=== PATIENT | female | born 1955 | race African-American/Black ===

== ENCOUNTER → 2016-09-13 | Outpatient (CLI) | payer BC ==
[2014-08-15 18:53] VITALS: BP 134/78
--- NOTE | 2016-09-13 16:35 | KCIC ---
Bilateral digital screening mammograms with CAD: HISTORY Routine screening. COMPARISON Comparison is made to previous studies dated 08/10/2014 and 07/13/2013. FINDINGS Breast density category B. The skin and nipples show no abnormalities. No abnormal lymph nodes are seen in the axilla. The breast parenchyma shows scattered fibroglandular density. There continues to be a small nodule consistent with an intramammary lymph node at the 10 o'clock C position of the right breast which is unchanged. In the left CC view anterior and medial to the nipple line, there is a small parenchymal density which appears to be new since previous exam and measures of approximately 6.8 millimeters in size. Recommend further evaluation with additional views in CC and true lateral projections and ultrasound evaluation. There are no other dominant masses, suspicious calcifications or architectural distortions. IMPRESSION New 6.8 millimeter nodule anterior medially in the left breast seen only on CC view. Recommend further evaluation with additional views in CC and true lateral projections and with ultrasound. This study was interpreted with the benefit of Computerized Aided Detection (CAD). Mammography is not 100% sensitive in detecting breast cancer. Therefore, a self breast exam and a clinical breast exam are very important. A negative mammogram does not negate a clinically suspicious finding and should not result in a delay in biopsying a clinically suspicious abnormality. BI-RADS category 0: Incomplete. Additional imaging is recommended. This patient's information has been entered into a reminder system for the patient to be notified with the results of this examination and a target date for her next mammograms. Electronically signed by: Josiane Magdaleno MD (Sep 13, 2016 16:33:46)
== END | disposition home or self-care (01) ==
LOC: KCIC MAMMO 15:27
PROVIDERS: ATTEND Family Medicine
DX: Z12.31 Encounter for screening mammogram for malignant neoplasm of breast (principal)
CPT/HCPCS: 77052; G0202; 77067

== ENCOUNTER → 2017-04-02 | Outpatient (CLI) | payer BC ==
[2014-08-15 18:53] VITALS: BP 134/78
--- NOTE | 2017-04-02 10:18 | RAD ---
DATE: 04/02/2017 EXAM: DIGITAL DIAGNOSTIC LT HISTORY: 6 month follow-up of questionable breast density COMPARISON: 09/13/2016, 08/10/2014, 07/21/2014 The breast parenchyma shows scattered fibroglandular densities. Breast parenchyma level B. FINDINGS: CC and MLO views of the left breast as well as a spot compression cc view of the medial aspect of the left breast were performed. The fibroglandular pattern is unchanged. No breast mass or enlarging breast densities are seen. No suspicious microcalcifications are evident. IMPRESSION: Stable left mammograms without evidence of malignancy. Follow-up bilateral mammography in 6 months is suggested. BI-RADS CATEGORY: 3 PROBABLY BENIGN FINDING(S)-SHORT INTERVAL FOLLOW-UP SUGGESTED RECOMMENDED FOLLOW-UP: 6M 6 MONTH FOLLOW-UP PQRS compliance statement: Patient information was entered into a reminder system with a target due date for the next mammogram. Mammography is a sensitive method for finding small breast cancers, but it does not detect them all and is not a substitute for careful clinical examination. A negative mammogram does not negate a clinically suspicious finding and should not result in delay in biopsying a clinically suspicious abnormality. "Our facility is accredited by the [employer] Mammography Program."
== END | disposition home or self-care (01) ==
LOC: KCIC MAMMO 09:12
PROVIDERS: ATTEND Family Medicine
DX: R92.8 Other abnormal and inconclusive findings on diagnostic imaging of breast (principal)
CPT/HCPCS: 76641; G0206; 77065

== ENCOUNTER → 2017-09-25 | Outpatient (CLI) | payer BC | END | disposition home or self-care (01) | LOC: KCIC MAMMO 08:58 | DX: N64.89 Other specified disorders of breast (principal) | CPT/HCPCS: 77066; G0279 ==

== ENCOUNTER → 2017-09-25 | Outpatient (CLI) | payer BC | END | disposition home or self-care (01) | LOC: US 14:25 | DX: N64.89 Other specified disorders of breast (principal) | CPT/HCPCS: 76641 ==

== ENCOUNTER 2018-01-09 02:36 | Emergency (ER) | payer BC ==
[2018-01-09 03:20] LABS: ADD MAN DIFF? NO
[2018-01-09] MEDS: LIDO:MAALOX 1:1 20 ML SINGLE DOSE. SWSW (03:23)
[2018-01-09 03:24] LABS: BASO # 0.1 x10^3/uL (0.0-0.2); BASO % 1 % (0-3); EOS # 0.2 x10^3/uL (0.0-0.7); EOS % 1 % (0-3); HEMATOCRIT 37.8 % (36.0-47.0); HEMOGLOBIN 12.3 g/dL (12.0-15.5); LYMPH # 4.5 x10^3/uL (1.0-4.8); LYMPH % 33 % (24-48); MEAN CORPUSCULAR HEMOGLOBIN 28 pg (25-35); MEAN CORPUSCULAR HGB CONC 33 g/dL (31-37); MEAN CORPUSCULAR VOLUME 85 fL (79-100); MONO # 0.7 x10^3/uL (0.0-1.1); MONO % 5 % (0-9); NEUT # 8.2 x10^3uL (1.8-7.7); NEUT % 60 % (31-73); PLATELET COUNT 318 x10^3/uL (140-400); RED BLOOD COUNT 4.46 x10^6/uL (3.50-5.40); RED CELL DISTRIBUTION WIDTH 15.7 % (11.5-14.5); WHITE BLOOD COUNT 13.8 x10^3/uL (4.0-11.0)
[2018-01-09 03:33] LABS: ANION GAP 11 (6-14); BLOOD UREA NITROGEN 17 mg/dL (7-20); BUN/CREATININE RATIO 19 (6-20); CALCIUM 9.1 mg/dL (8.5-10.1); CARBON DIOXIDE 26 mmol/L (21-32); CHLORIDE 104 mmol/L (98-107); CREATININE 0.9 mg/dL (0.6-1.0); GFR 76.3; GLUCOSE 228 mg/dL (70-99); POTASSIUM 4.2 mmol/L (3.5-5.1); SODIUM 141 mmol/L (136-145)
[2018-01-09 03:34] LABS: BILIRUBIN,URINE NEGATIVE (NEG); CLARITY,URINE CLEAR; COLOR,URINE YELLOW; GLUCOSE,URINE >=1000 mg/dL (NEG); NITRITE,URINE NEGATIVE (NEG); PH,URINE 6.5; PROTEIN,URINE NEGATIVE (NEG-TRACE); UROBILINOGEN,URINE 0.2 mg/dL (0.2 mg/dL)
[2018-01-09 03:35] LABS: BACTERIA,URINE 0 /HPF (0-FEW); RBC,URINE OCC /HPF (0-2); SQUAMOUS EPITHELIAL CELL,UR FEW /LPF
[2018-01-09 03:39] LABS: ALBUMIN 3.3 g/dL (3.4-5.0); ALBUMIN/GLOBULIN RATIO 0.8 (1.0-1.7); ALK PHOS 151 U/L (46-116); ALT (SGPT) 24 U/L (14-59); AST (SGOT) 16 U/L (15-37); LIPASE 218 U/L (73-393); TOTAL BILIRUBIN 0.2 mg/dL (0.2-1.0); TOTAL PROTEIN 7.3 g/dL (6.4-8.2)
[2018-01-09 03:41] LABS: TROPONINI < 0.017 ng/mL (0.000-0.055)
== END 2018-01-09 04:04 | disposition home or self-care (01) ==
LOC: ER 02:36
DX: K21.9 Gastro-esophageal reflux disease without esophagitis (principal); E11.9 Type 2 diabetes mellitus without complications; E78.00 Pure hypercholesterolemia, unspecified; I10 Essential (primary) hypertension; Z88.0 Allergy status to penicillin; Z90.49 Acquired absence of other specified parts of digestive tract; Z90.710 Acquired absence of both cervix and uterus
CPT/HCPCS: 36415; 80053; 81001; 83690; 84484; 85025; 93005; 99285-25

== ENCOUNTER → 2018-04-03 | Outpatient (CLI) | payer BC | END | disposition home or self-care (01) | LOC: KCIC MAMMO 08:50 | DX: R92.8 Other abnormal and inconclusive findings on diagnostic imaging of breast (principal); I10 Essential (primary) hypertension; E11.9 Type 2 diabetes mellitus without complications; E78.00 Pure hypercholesterolemia, unspecified; K21.9 Gastro-esophageal reflux disease without esophagitis; Z90.49 Acquired absence of other specified parts of digestive tract | CPT/HCPCS: 76641; 77065; G0279 ==

== ENCOUNTER → 2018-10-24 | Outpatient (CLI) | payer BC ==
[2018-01-09 03:40] VITALS: BP 151/69
[~2018-10-24] MED LIST: RANI300T3 PO
--- NOTE | 2018-10-24 13:09 | KCIC ---
MR of the right wrist without contrast HISTORY: Right wrist pain. Swelling at the radial aspect. Symptoms for 6 months. TECHNIQUE: Routine multiplanar sequences are obtained. FINDINGS: Slight ulnar minus variance. Triangular fibrocartilage appears intact. The extensor carpi ulnaris tendon demonstrates mild tendinosis. Other extensor compartments are intact. The flexor tendons are intact. Median nerve unremarkable. Scapholunate ligament and lunotriquetral ligament are intact. Alignment of the carpal bones is intact. There is a small lobulated fluid collection anterior to the radial styloid and radioscaphoid joint, likely a ganglion, altogether measuring about 1.5 cm transverse diameter. There is no evidence of large joint effusion. No aggressive bone destruction or acute fracture. Scattered small carpal cysts are identified. IMPRESSION: 1. Mild extensor carpi ulnaris tendinosis. 2. Small cyst or ganglion anterior to the radial styloid. Electronically signed by: Jose Alfredo Dinh MD (10/24/2018 1:06 PM) [facility]
== END | disposition home or self-care (01) ==
LOC: KCIC MRI 09:42
PROVIDERS: ATTEND Orthopaedic Surgery
DX: M77.8 Other enthesopathies, not elsewhere classified (principal)
CPT/HCPCS: 73221

== ENCOUNTER 2018-11-09 10:14 | Emergency (ER) | payer BC ==
[~2018-11-09] VITALS: Ht 152.4 cm; Wt 87.5 kg
[2018-11-09] MEDS ORDERED: ONDANSETRON PF 4 MG/2 ML VIAL. IV ONE (11:00)
[2018-11-09] MEDS ORDERED: MECLIZINE HCL 12.5 MG TABLET. PO ONE (11:00)
[2018-11-09 11:09] LABS: BASO # 0.1 x10^3/uL (0.0-0.2); BASO % 1 % (0-3); EOS # 0.1 x10^3/uL (0.0-0.7); EOS % 1 % (0-3); HEMATOCRIT 37.1 % (36.0-47.0); HEMOGLOBIN 11.9 g/dL (12.0-15.5); LYMPH # 3.3 x10^3/uL (1.0-4.8); LYMPH % 34 % (24-48); MEAN CORPUSCULAR HEMOGLOBIN 27 pg (25-35); MEAN CORPUSCULAR HGB CONC 32 g/dL (31-37); MEAN CORPUSCULAR VOLUME 85 fL (79-100); MONO # 0.5 x10^3/uL (0.0-1.1); MONO % 5 % (0-9); NEUT # 5.9 x10^3uL (1.8-7.7); NEUT % 59 % (31-73); PLATELET COUNT 290 x10^3/uL (140-400); RED BLOOD COUNT 4.34 x10^6/uL (3.50-5.40); RED CELL DISTRIBUTION WIDTH 16.3 % (11.5-14.5); WHITE BLOOD COUNT 9.9 x10^3/uL (4.0-11.0)
--- NOTE | 2018-11-09 11:13 | PHYS DOC ---
Past Medical History Past Medical History: Diabetes-Type II, GERD, High Cholesterol, Hypertension Past Surgical History: Appendectomy, Hysterectomy Alcohol Use: None Drug Use: None Adult General Chief Complaint Chief Complaint: DIZZY/LIGHT HEADED HPI HPI Patient is a 63 year old female who presents with dizziness for the past 2 days. She describes it as a spinning sensation with nausea. Worse with changing head position and eyes open, improved with staying still and eyes closed. Patient denies any chest pain or palpitations. She denies any vomiting. Denies any headache. She reports ringing in bilateral ears but this is chronic without any acute changes. No fevers.[] Review of Systems Review of Systems Constitutional: Denies fever or chills [] Eyes: Denies change in visual acuity, redness, or eye pain [] HENT: Denies nasal congestion or sore throat [] Respiratory: Denies cough or shortness of breath [] Cardiovascular: No chest pain or palpitations[] GI: Denies abdominal pain, nausea, vomiting, bloody stools or diarrhea [] : Denies dysuria or hematuria [] Musculoskeletal: Denies back pain or joint pain [] Integument: Denies rash or skin lesions [] Neurologic: Denies headache, focal weakness or sensory changes [] Endocrine: Denies polyuria or polydipsia [] All other systems were reviewed and found to be within normal limits, except as documented in this note. Current Medications Current Medications Current Medications Medications (Trade) Dose Ordered Sig/Yuri Start Time Stop Time Status Last Admin Dose Admin Lorazepam (Ativan) 1 mg 1X ONCE 11/09/18 12:30 11/09/18 12:31 DC 11/09/18 12:36 1 MG Meclizine HCl (Antivert) 25 mg 1X ONCE 11/09/18 11:00 11/09/18 11:01 DC 11/09/18 11:02 25 MG Ondansetron HCl (Zofran) 4 mg 1X ONCE 11/09/18 11:00 11/09/18 11:01 DC 11/09/18 11:00 4 MG Allergies Allergies Allergies Coded Allergies Type Severity Reaction Last Updated Verified penicillin V Allergy Intermediate hives 08/15/14 Yes Physical Exam Physical Exam Constitutional: Well developed, well nourished, no acute distress, non-toxic appearance. [] HENT: Normocephalic, atraumatic, bilateral external ears normal, oropharynx moist, no oral exudates, nose normal. [] Eyes: PERRLA, EOMI, conjunctiva normal, no discharge. [] Neck: Normal range of motion, no tenderness, supple, no stridor. [] Cardiovascular:Heart rate regular rhythm, no murmur [] Lungs & Thorax: Bilateral breath sounds clear to auscultation [] Abdomen: Bowel sounds normal, soft, no tenderness, no masses, no pulsatile masses. [] Skin: Warm, dry, no erythema, no rash. [] Back: No tenderness, no CVA tenderness. [] Extremities: No tenderness, no cyanosis, no clubbing, ROM intact, no edema. [] Neurologic: Alert and oriented X 3, normal motor function, normal sensory function, no focal deficits noted. Nystagmus is present with fast beat to the left. This extinguishes within 60 seconds of changing position.[] Psychologic: Affect normal, judgement normal, mood normal. [] Current Patient Data Vital Signs Vital Signs Date Time Temp Pulse Resp B/P (MAP) Pulse Ox O2 Delivery O2 Flow Rate FiO2 11/09/18 12:00 66 16 99 11/09/18 10:31 98.8 173/75 (107) Room Air 98.8 Lab Values Laboratory Tests Test 11/09/18 10:40 11/09/18 11:54 White Blood Count 9.9 x10^3/uL (4.0-11.0) Red Blood Count 4.34 x10^6/uL (3.50-5.40) Hemoglobin 11.9 g/dL (12.0-15.5) L Hematocrit 37.1 % (36.0-47.0) Mean Corpuscular Volume 85 fL (79-100) Mean Corpuscular Hemoglobin 27 pg (25-35) Mean Corpuscular Hemoglobin Concent 32 g/dL (31-37) Red Cell Distribution Width 16.3 % (11.5-14.5) H Platelet Count 290 x10^3/uL (140-400) Neutrophils (%) (Auto) 59 % (31-73) Lymphocytes (%) (Auto) 34 % (24-48) Monocytes (%) (Auto) 5 % (0-9) Eosinophils (%) (Auto) 1 % (0-3) Basophils (%) (Auto) 1 % (0-3) Neutrophils # (Auto) 5.9 x10^3uL (1.8-7.7) Lymphocytes # (Auto) 3.3 x10^3/uL (1.0-4.8) Monocytes # (Auto) 0.5 x10^3/uL (0.0-1.1) Eosinophils # (Auto) 0.1 x10^3/uL (0.0-0.7) Basophils # (Auto) 0.1 x10^3/uL (0.0-0.2) Prothrombin Time 11.7 SEC (11.7-14.0) Prothrombin Time INR 0.9 (0.8-1.1) Sodium Level 142 mmol/L (136-145) Potassium Level 4.0 mmol/L (3.5-5.1) Chloride Level 107 mmol/L (98-107) Carbon Dioxide Level 28 mmol/L (21-32) Anion Gap 7 (6-14) Blood Urea Nitrogen 12 mg/dL (7-20) Creatinine 0.8 mg/dL (0.6-1.0) Estimated GFR (Cockcroft-Gault) 87.1 BUN/Creatinine Ratio 15 (6-20) Glucose Level 295 mg/dL (70-99) H Calcium Level 8.7 mg/dL (8.5-10.1) Magnesium Level 2.3 mg/dL (1.8-2.4) Total Bilirubin 0.2 mg/dL (0.2-1.0) Aspartate Amino Transferase (AST) 12 U/L (15-37) L Alanine Aminotransferase (ALT) 17 U/L (14-59) Alkaline Phosphatase 148 U/L (46-116) H Troponin I Quantitative < 0.017 ng/mL (0.000-0.055) GY-Mys-S-Type Natriuretic Peptide 53 pg/mL (0-124) Total Protein 7.2 g/dL (6.4-8.2) Albumin 3.1 g/dL (3.4-5.0) L Albumin/Globulin Ratio 0.8 (1.0-1.7) L Urine Collection Type Void Urine Color Yellow Urine Clarity Clear Urine pH 6.0 Urine Specific [employer] >=1.030 Urine Protein Negative mg/dL (NEG-TRACE) Urine Glucose (UA) >=1000 mg/dL (NEG) Urine Ketones (Stick) Negative mg/dL (NEG) Urine Blood Negative (NEG) Urine Nitrite Negative (NEG) Urine Bilirubin Negative (NEG) Urine Urobilinogen Dipstick 1.0 mg/dL (0.2 mg/dL) Urine Leukocyte Esterase Negative (NEG) Urine RBC 0 /HPF (0-2) Urine WBC 1-4 /HPF (0-4) Urine Squamous Epithelial Cells Mod /LPF Urine Bacteria Few /HPF (0-FEW) Urine Yeast Present /HPF Laboratory Tests 11/09/18 10:40 Laboratory Tests 11/09/18 10:40 EKG EKG EKG shows a sinus rhythm at 79 bpm, left axis, QTC of 3 and her 95 ms, no ST elevations, nonspecific ST-T wave changes diffusely, interpreted by me at 1038[] Radiology/Procedures Radiology/Procedures CT HEAD INDICATION: DIZZINESS X 2 DAYS COMPARISON: None Available. Exposure: One or more of the following individualized dose reduction techniques were utilized for this examination: 1. Automated exposure control 2. Adjustment of the mA and/or kV according to patient size 3. Use of iterative reconstruction technique TECHNIQUE: 5 mm contiguous axial images were obtained from the skull base to the vertex FINDINGS: No abnormal attenuation within the brain parenchyma. No evidence of acute intracranial hemorrhage. No extra-axial fluid collections. No mass effect or midline shift. Ventricular size is appropriate. Basal cisterns are patent. No fractures identified.Sullivan-white differentiation is preserved.Globes and orbits are within normal limits. Paranasal sinuses and mastoid air cells are clear. IMPRESSION: No acute intracranial findings. EXAM: CHEST 1 VIEW History: Dizziness COMPARISON: None available. TECHNIQUE: Single portable radiograph of the chest FINDINGS: The cardiac silhouette is unremarkable. The lungs are clear bilaterally. The costophrenic sulci are clear and well demarcated. IMPRESSION: No radiographic evidence of an acute cardiopulmonary process.[] Course & Med Decision Making Course & Med Decision Making Pertinent Labs and Imaging studies reviewed. (See chart for details) ED course: Patient arrived, was placed in bed, and tolerated exam well. [facility]. She received mild improvement from antiemetics and Antivert. Given that the hospital is out of IV diazepam, she was given IV Ativan as a second line agent to help with the vertigo symptoms. She reports feeling much better after the Ativan. Medical decision making: This appears to be a case of peripheral vertigo. No evidence of intracranial mass or bleed, no evidence of this being cardiac etiology. No evidence of intractable vertigo symptoms.[] Dragon Disclaimer Dragon Disclaimer This electronic medical record was generated, in whole or in part, using a voice recognition dictation system. Departure Departure Impression: Primary Impression: Peripheral vertigo Disposition: HOME, SELF-CARE Condition: IMPROVED Referrals: VAN CALIXTO MD (PCP) Follow-up in 2 days Patient Instructions: Benign Positional Vertigo Additional Instructions: Follow-up with your regular doctor in 2 days. Try the otolith recannulation maneuvers as attached. Return to the ER if unable to tolerate liquids, worsening symptoms, or any other concerns. Scripts Diazepam (VALIUM) 5 Mg Tablet 5 MG PO QIDPRN PRN for VERTIGO, #20 TAB Prov: JORJE ANAYA DO 11/09/18 Ondansetron Hcl (ZOFRAN) 4 Mg Tablet 4 MG PO PRN TID PRN for NAUSEA/VOMITING, #20 nausea/vomiting Prov: JORJE ANAYA DO 11/09/18 Meclizine Hcl (MECLIZINE HCL) 25 Mg Tablet 25 MG PO PRN TID PRN for VERTIGO, #30 dizziness Prov: JORJE ANAYA DO 11/09/18 Problem Qualifiers Primary Impression: Peripheral vertigo Laterality: unspecified laterality Qualified Codes: H81.399 - Other peripheral vertigo, unspecified ear JORJE ANAYA DO Nov 09, 2018 11:13
[2018-11-09 11:15] LABS: PROTHROMBIN TIME PATIENT 11.7 SEC (11.7-14.0)
[2018-11-09 11:19] LABS: CALCIUM 8.7 mg/dL (8.5-10.1); CREATININE 0.8 mg/dL (0.6-1.0); GFR 87.1
[2018-11-09 11:25] LABS: ALBUMIN 3.1 g/dL (3.4-5.0); ALBUMIN/GLOBULIN RATIO 0.8 (1.0-1.7); MAGNESIUM 2.3 mg/dL (1.8-2.4); TOTAL BILIRUBIN 0.2 mg/dL (0.2-1.0); TOTAL PROTEIN 7.2 g/dL (6.4-8.2)
--- NOTE | 2018-11-09 11:50 | RAD ---
CT HEAD INDICATION: DIZZINESS X 2 DAYS COMPARISON: None Available. Exposure: One or more of the following individualized dose reduction techniques were utilized for this examination: 1. Automated exposure control 2. Adjustment of the mA and/or kV according to patient size 3. Use of iterative reconstruction technique TECHNIQUE: 5 mm contiguous axial images were obtained from the skull base to the vertex FINDINGS: No abnormal attenuation within the brain parenchyma. No evidence of acute intracranial hemorrhage. No extra-axial fluid collections. No mass effect or midline shift. Ventricular size is appropriate. Basal cisterns are patent. No fractures identified.Sullivan-white differentiation is preserved.Globes and orbits are within normal limits. Paranasal sinuses and mastoid air cells are clear. IMPRESSION: No acute intracranial findings. Electronically signed by: Jose Angel Swift MD (11/09/2018 11:47 AM) [facility]
--- NOTE | 2018-11-09 11:51 | RAD ---
EXAM: CHEST 1 VIEW History: Dizziness COMPARISON: None available. TECHNIQUE: Single portable radiograph of the chest FINDINGS: The cardiac silhouette is unremarkable. The lungs are clear bilaterally. The costophrenic sulci are clear and well demarcated. IMPRESSION: No radiographic evidence of an acute cardiopulmonary process. Electronically signed by: Jose Angel Swift MD (11/09/2018 11:48 AM) [facility]
[2018-11-09 12:00] VITALS: BP 161/70
[2018-11-09 12:08] LABS: BILIRUBIN,URINE NEGATIVE (NEG); CLARITY,URINE CLEAR; COLOR,URINE YELLOW; NITRITE,URINE NEGATIVE (NEG); PROTEIN,URINE NEGATIVE (NEG-TRACE)
[2018-11-09 12:25] LABS: BACTERIA,URINE FEW /HPF (0-FEW); SQUAMOUS EPITHELIAL CELL,UR MOD /LPF
[2018-11-09 12:26] LABS: RBC,URINE 0 /HPF (0-2); YEAST,URINE PRESENT /HPF
[2018-11-09] MEDS ORDERED: MECL25TA3 PO (12:53)
[2018-11-09] MEDS ORDERED: ONDA4TAB7 PO (12:53)
[2018-11-09] MEDS ORDERED: DIAZ5TAB PO (12:53)
--- NOTE | 2018-11-09 17:26 | EKG ---
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
== END 2018-11-09 13:00 | disposition home or self-care (01) ==
LOC: ER 10:14
DX: H81.399 Other peripheral vertigo, unspecified ear (principal); E11.9 Type 2 diabetes mellitus without complications; E78.00 Pure hypercholesterolemia, unspecified; I10 Essential (primary) hypertension; K21.9 Gastro-esophageal reflux disease without esophagitis; Z90.89 Acquired absence of other organs; Z90.710 Acquired absence of both cervix and uterus; Z88.0 Allergy status to penicillin
CPT/HCPCS: 36415; 70450; 71045; 80053; 81001; 83735; 83880; 84484; 85025; 85610; 93005; 96374; 96375; 99284; J2060; J2405; J8597

== ENCOUNTER → 2018-11-17 | Outpatient (CLI) | payer BC ==
[2018-11-09 12:00] VITALS: BP 161/70
[~2018-11-17] MED LIST changes: +DIAZ5TAB PO; +MECL25TA3 PO; +ONDA4TAB7 PO
--- NOTE | 2018-11-17 09:52 | RAD ---
MR#: [id number] Date of Study: 11/17/2018 Ordering Physician: EDWARD THOMAS, Referring Physician: EDWARD THOMAS, Tech: Sumanth Mahmood MBA, RDMS, RVT, RDCS, RTR APPROVED REPORT Patient Location: OUT-PATIENT Indications Uncontrolled HTN Renal Artery Doppler Right Renal Artery Left Renal Arter y Proximal 118.0/30.0 cm/secProximal 114.0/26.0 cm/sec Mid 131.0/29.0 cm/secMid 132.0/30.0 cm/sec Distal 111.0/26.0 cm/secDistal 107.0/27.0 cm/sec Renal/Aorta Ratio 0.96Renal/Aorta Ratio 0.97 Prox. Resistive Index 0.75Prox. Resistive Index 0.77 Mid Resistive Index 0.78Mid Resistive Index 0.78 Distal Resistive Index 0.77Distal Resistive Index 0.75 Rt. Segmental A. 45.0/12.0 cm/secLt. Segmental A. 55.0/17.0 cm/sec Renal Measurements RightLeft Kidney Xstkir80.5 cm cmKidney Igxoam11.8 cm cm Right Additional FindingsLeft Additional Findings Aortic Doppler VelocityWaveform Proximal Aorta 136.0 cm/sec Findings Grayscale images of the bilateral kidneys do not reveal any obvious pathology. Spectral waveforms and color Doppler of the proximal, mid and distal renal arteries bilaterally do no t reveal any velocity acceleration. Normal resistive indices and renal to aortic ratios are noted. Critical Notification Critical Value: No <Conclusion> No significant renal artery stenosis. Signed by : Edwin Parsons, Electronically Approved : 11/17/2018 09:51:52
== END | disposition home or self-care (01) ==
LOC: US 07:01
PROVIDERS: ATTEND Internal Medicine Cardiovascular Disease
DX: I10 Essential (primary) hypertension (principal)
CPT/HCPCS: 76770

== ENCOUNTER → 2018-11-28 | Outpatient (CLI) | payer BC ==
[2018-11-09 12:00] VITALS: BP 161/70
--- NOTE | 2018-11-28 15:39 | CARD ---
MR#: [id number] Date of Study: 11/28/2018 Ordering Physician: EDWARD DEGROOT, Referring Physician: EDWARD DEGROOT, Tech: Liz Hagen APPROVED REPORT EXAM: Two-dimensional and M-mode echocardiogram with Doppler and color Doppler. Other Information Quality : GoodHR: 82bpm INDICATION Hypertension/HCVD RISK FACTORS Hypertension Hyperlipidemia Diabetes 2D DIMENSIONS RVDd3.6 (2.9-3.5cm)Left Atrium(2D)3.6 (1.6-4.0cm) IVSd1.0 (0.7-1.1cm)Aortic Root(2D)2.5 (2.0-3.7cm) LVDd5.0 (3.9-5.9cm)LVOT Diameter2.0 (1.8-2.4cm) PWd0.9 (0.7-1.1cm)LVDs3.5 (2.5-4.0cm) FS (%) 29.7 %SV68.3 ml LVEF(%)56.6 (>50%) Aortic Valve AoV Peak Raymon.114.1cm/sAoV VTI25.8cm AO Peak GR.5.2mmHgLVOT Peak Raymon.59.3cm/s LVOT VTI 13.72cmAO Mean GR.3mmHg JERMAINE (VMAX)1.47ym4ZOW (VTI)1.65cm2 Mitral Valve MV E Facxcfdo98.7cm/sMV DECEL HEGS469sl MV A Mmxjyxkm30.4cm/sMV LDS98dk E/A Ratio0.8MVA (PHT)3.64cm2 TDI E/Lateral E'7.2E/Medial E'6.0 Pulmonary Valve PV Peak Hogapbxn30.9cm/sPV Peak Grad.3mmHg Tricuspid Valve TR P. Kzcnrnpt599ax/sRAP NUMMNVGU6pfMh TR Peak Gr.61azFdQMYY01ziCt Pulmonary Vein S1 Oawwlsfn59.1cm/sD2 Fforzzur66.2cm/s PVa ivtqrobo78pdnw LEFT VENTRICLE The left ventricle is normal size. There is normal left ventricular wall thickness. The left ventricu lar systolic function is normal and the ejection fraction is within normal range. The Ejection Fracti on is 50-55%. There is normal LV segmental wall motion. Transmitral Doppler flow pattern is Grade I-a bnormal relaxation pattern. RIGHT VENTRICLE The right ventricle is normal size. There is normal right ventricular wall thickness. The right ventr icular systolic function is normal. ATRIA The left atrium size is normal. The right atrium size is normal. The interatrial septum bows toward l eft atrium consistent with elevated right atrial pressure. AORTIC VALVE The aortic valve is normal in structure and function. Doppler and Color Flow revealed no significant aortic regurgitation. There is no significant aortic valvular stenosis. MITRAL VALVE The mitral valve is normal in structure and function. There is no evidence of mitral valve prolapse. There is no mitral valve stenosis. Doppler and Color-flow revealed trace mitral regurgitation. TRICUSPID VALVE The tricuspid valve is normal in structure and function. Doppler and Color Flow revealed trace to mil d tricuspid regurgitation with an estimated PAP of 34 mmHg. There is no tricuspid valve stenosis. PULMONIC VALVE The pulmonary valve is normal in structure and function. Doppler and Color Flow revealed no pulmonic valvular regurgitation. There is no pulmonic valvular stenosis. GREAT VESSELS The aortic root is normal in size. The IVC is normal in size and collapses >50% with inspiration. PERICARDIAL EFFUSION There is no evidence of significant pericardial effusion. Critical Notification Critical Value: No <Conclusion> The left ventricle is normal size. The left ventricular systolic function is normal and the ejection fraction is within normal range. The Ejection Fraction is 50-55%. There is no significant aortic valvular stenosis. Doppler and Color Flow revealed no significant aortic regurgitation. Doppler and Color-flow revealed trace mitral regurgitation. Doppler and Color Flow revealed trace to mild tricuspid regurgitation with an estimated PAP of 34 mmH g. Signed by : Edward Degroot MD Electronically Approved : 11/28/2018 15:38:31
== END | disposition home or self-care (01) ==
LOC: ECHO 13:55
PROVIDERS: ATTEND Internal Medicine Cardiovascular Disease
DX: I10 Essential (primary) hypertension (principal); E78.5 Hyperlipidemia, unspecified; E11.9 Type 2 diabetes mellitus without complications; R00.8 Other abnormalities of heart beat
CPT/HCPCS: 93306

== ENCOUNTER → 2019-02-09 | Outpatient (CLI) | payer BC ==
--- NOTE | 2019-02-09 16:07 | KCIC ---
EXAM: Left calcaneus 2 views. HISTORY: Erika deformity. COMPARISON: None. FINDINGS: There are moderate plantar and posterior calcaneal spurs. Spur at the calcaneal tuberosity measures 9 mm. There is mild overlying soft tissue swelling. The Achilles tendon stripe is not clearly thickened by radiographs. The plantar spur measures 7 mm. No fractures are identified. The subtalar joint appears normally aligned. IMPRESSION: 1. Posterior and plantar calcaneal spurs as above. Electronically signed by: Tamar Lobo MD (02/09/2019 4:04 PM) [facility]
== END | disposition home or self-care (01) ==
LOC: KCIC 11:19
PROVIDERS: ATTEND Orthopaedic Surgery
DX: M77.32 Calcaneal spur, left foot (principal); M92.62 Juvenile osteochondrosis of tarsus, left ankle
CPT/HCPCS: 73650

== ENCOUNTER 2019-03-22 10:00 | Emergency (ER) | payer BC ==
[~2019-03-22] VITALS: Ht 152.4 cm; Wt 88.9 kg
[2019-03-22 10:14] VITALS: BP 140/63
[2019-03-22] MEDS ORDERED: MORPHINE SULFATE 4 MG/ML VIAL. IM ONE (10:15)
--- NOTE | 2019-03-22 11:14 | RAD ---
Examination: CT lumbar spine without contrast HISTORY: History of history of lifting weight, point tenderness upper lumbar spine COMPARISON: None available Technique: Axial CT images of the lumbar spine were performed with contrast. Coronal and sagittal reformats performed Exposure: One or more of the following individualized dose reduction techniques were utilized for this examination: 1. Automated exposure control 2. Adjustment of the mA and/or kV according to patient size 3. Use of iterative reconstruction technique FINDINGS: The lumbar vertebral body heights are maintained. No evidence of listhesis. L1-L2: Minimal disc bulge causing minimal anterior thecal sac impression. L2-3: Mild disc bulge identified causing mild anterior thecal sac impression. L3-L4: Diffuse disc bulge causing moderate spinal canal stenosis. Mild bilateral neural foraminal narrowing. L4-L5: Diffuse disc bulge causing moderate spinal canal stenosis. Mild bilateral neural foraminal narrowing. L5-S1: Diffuse disc bulge causing moderate spinal canal stenosis. Moderate bilateral neural foraminal narrowing. The caliber of the aorta grossly appears unremarkable. IMPRESSION: 1. No acute osseous findings. 2. Multilevel degenerative changes lumbar spine. Electronically signed by: Jose Angel Swift MD (03/22/2019 11:11 AM) [facility]
[2019-03-22] MEDS ORDERED: HYDR-3164 PO (11:31)
[2019-03-22] MEDS ORDERED: CYCL10TA2 PO (11:31)
[2019-03-22] MEDS ORDERED: METH4TAB2 PO (11:31)
--- NOTE | 2019-03-22 11:31 | PHYS DOC ---
Past Medical History Past Medical History: Diabetes-Type II, GERD, High Cholesterol, Hypertension Past Surgical History: Appendectomy, Hysterectomy Alcohol Use: None Drug Use: None Adult General Chief Complaint Chief Complaint: BACK PAIN OR INJURY HPI HPI Patient is a 63 year old female who presents with complaining of back pain. Patient states she lifted a mattress with his son 4 days ago and since then has had mid back pain as a constant sharp pain without radiation that getting worse with movement. Patient denies focal neuro deficit, nausea and vomiting, abdominal pain, chest pain and shortness of breath, bowel incontinence. Patient states she took Tylenol and apply ice on her back without improvement of her pain and rated her pain 10 over 10. Review of Systems Review of Systems Constitutional: Denies fever or chills [] Eyes: Denies change in visual acuity, redness, or eye pain [] HENT: Denies nasal congestion or sore throat [] Respiratory: Denies cough or shortness of breath [] Cardiovascular: No additional information not addressed in HPI [] GI: Denies abdominal pain, nausea, vomiting, bloody stools or diarrhea [] : Denies dysuria or hematuria [] Musculoskeletal: Reports back pain, denies joint pain [] Integument: Denies rash or skin lesions [] Neurologic: Denies headache, focal weakness or sensory changes [] Endocrine: Denies polyuria or polydipsia [] All other systems were reviewed and found to be within normal limits, except as documented in this note. Current Medications Current Medications Current Medications Medications (Trade) Dose Ordered Sig/Yuri Start Time Stop Time Status Last Admin Dose Admin Morphine Sulfate (Morphine Sulfate) 4 mg 1X ONCE 03/22/19 10:15 03/22/19 10:16 DC 03/22/19 10:26 4 MG Allergies Allergies Allergies Coded Allergies Type Severity Reaction Last Updated Verified penicillin V Allergy Intermediate hives 08/15/14 Yes Physical Exam Physical Exam Constitutional: Well developed, well nourished, moderate distress, non-toxic appearance. [] HENT: Normocephalic, atraumatic. Neck: Normal range of motion, no tenderness, supple, no stridor. [] Cardiovascular:Heart rate regular rhythm, no murmur [] Lungs & Thorax: Bilateral breath sounds clear to auscultation [] Back: Tenderness on midline lumbar spine painful range of motion, no CVA tenderness. [] Extremities: No tenderness, no cyanosis, no clubbing, ROM intact, no edema. [] Neurologic: Alert and oriented X 3, normal motor function, normal sensory function, no focal deficits noted. [] Psychologic: Affect anxious, judgement normal, mood normal. [] Current Patient Data Vital Signs Vital Signs Date Time Temp Pulse Resp B/P (MAP) Pulse Ox O2 Delivery O2 Flow Rate FiO2 03/22/19 10:26 16 99 Room Air 03/22/19 10:14 98.1 71 140/63 (88) 98.1 EKG EKG [] Radiology/Procedures Radiology/Procedures [facility] [address] [place], [place] [id number] IMAGING REPORT Signed PATIENT: JESSICA GODINEZ ACCOUNT: [id number] : 1955 LOCATION: ER AGE: 63 SEX: F EXAM STATUS: REG ER ORD. PHYSICIAN: DEANNE APARICIO MD REASON: lifted weigth, point of tenderness in upper lumbar spine PROCEDURE: CT LUMBAR SPINE WO CONTRAST Examination: CT lumbar spine without contrast HISTORY: History of history of lifting weight, point tenderness upper lumbar spine COMPARISON: None available Technique: Axial CT images of the lumbar spine were performed with contrast. Coronal and sagittal reformats performed Exposure: One or more of the following individualized dose reduction techniques were utilized for this examination: 1. Automated exposure control 2. Adjustment of the mA and/or kV according to patient size 3. Use of iterative reconstruction technique FINDINGS: The lumbar vertebral body heights are maintained. No evidence of listhesis. L1-L2: Minimal disc bulge causing minimal anterior thecal sac impression. L2-3: Mild disc bulge identified causing mild anterior thecal sac impression. L3-L4: Diffuse disc bulge causing moderate spinal canal stenosis. Mild bilateral neural foraminal narrowing. L4-L5: Diffuse disc bulge causing moderate spinal canal stenosis. Mild bilateral neural foraminal narrowing. L5-S1: Diffuse disc bulge causing moderate spinal canal stenosis. Moderate bilateral neural foraminal narrowing. The caliber of the aorta grossly appears unremarkable. IMPRESSION: 1. No acute osseous findings. 2. Multilevel degenerative changes lumbar spine. Electronically signed by: Jose Angel Swift MD (03/22/2019 11:11 AM) [facility] DICTATED and SIGNED BY: JOSE ANGEL SWIFT MD DATE: 03/22/19 1111 Course & Med Decision Making Course & Med Decision Making Pertinent Imaging studies reviewed. (See chart for details) Evaluation of patient in ER showed 63-year-old female patient with complaining of low back pain after lifting weights. Patient had midline tenderness and CT showed multiple bulging disc and spinal stenosis without acute finding. Patient treated with morphine IM and felt better. Patient was advised to follow up with her primary care physician and continue to apply ice on her back. Prescription for [place], Flexeril and Medrol Dosepak given. I've spoken with the patient and/or caregivers. I've explained the patient's condition, diagnosis and treatment plan based on information available to me at this time. I've answered the patient's and/or caregivers questions and addressed any concerns. The patient and/or caregivers have a good understanding the patient's diagnosis, condition and treatment plan as can be expected at this point. Vital signs have been stabilized. The patient's condition is stable for discharge from the emergency department. The patient will pursue further outpatient evaluation with her primary care provider or other designated consulting physician as outlined in the discharge instructions. Patient and/or caregivers are agreeable to this plan of care and follow-up instructions have been explained in detail. The patient and/or caregivers have received these instructions in written format and expressed un derstanding of these discharge instructions. The patient and her caregivers are aware that if any significant change in condition or worsening of symptoms should prompt him to immediately return to this of the closest emergency department. If an emergent department is not readily available I would encourage him to call 911. Mera Disclaimer Dragon Disclaimer This electronic medical record was generated, in whole or in part, using a voice recognition dictation system. Departure Departure Impression: Primary Impression: Degenerative joint disease (DJD) of lumbar spine Additional Impressions: Acute lumbosacral myofascial strain Spinal stenosis of lumbar region Bulging disc Disposition: HOME, SELF-CARE (at 1127) Condition: IMPROVED Referrals: VAN CALIXTO MD (PCP) Patient Instructions: Lumbosacral Strain, Spinal Stenosis Additional Instructions: Drink plenty of liquids Follow-up with your primary care physician in 3-5 days Return to ER if not getting better Apply ice on the affected area Scripts Hydrocodone/Apap 5-325 (NORCO 5-325 TABLET) 1 Each Tablet 1 TAB PO PRN Q6HRS PRN for PAIN, #10 TAB 0 Refills Prov: DEANNE APARICIO MD 03/22/19 Methylprednisolone (MEDROL) 4 Mg Tab.ds.pk 1 PKG PO UD for inflammation, #1 PKG Prov: DEANNE APARICIO MD 03/22/19 Cyclobenzaprine Hcl (CYCLOBENZAPRINE HCL) 10 Mg Tablet 1 TAB PO TID, #21 TAB Prov: DEANNE APARICIO MD 03/22/19 Problem Qualifiers Primary Impression: Degenerative joint disease (DJD) of lumbar spine Spinal osteoarthritis complication: unspecified spinal osteoarthritis Qualified Codes: M47.816 - Spondylosis without myelopathy or radiculopathy, lumbar region Additional Impressions: Acute lumbosacral myofascial strain Encounter type: initial encounter Qualified Codes: S39.012A - Strain of muscle, fascia and tendon of lower back, initial encounter Spinal stenosis of lumbar region Neurogenic claudication status: without neurogenic claudication Qualified Codes: M48.061 - Spinal stenosis, lumbar region without neurogenic claudication DEANNE APARICIO MD Mar 22, 2019 11:31
== END 2019-03-22 11:49 | disposition home or self-care (01) ==
LOC: ER 10:00
DX: S39.012A Strain of muscle, fascia and tendon of lower back, initial encounter (principal); M47.816 Spondylosis without myelopathy or radiculopathy, lumbar region; M48.061 Spinal stenosis, lumbar region without neurogenic claudication; E78.00 Pure hypercholesterolemia, unspecified; K21.9 Gastro-esophageal reflux disease without esophagitis; E11.9 Type 2 diabetes mellitus without complications; I10 Essential (primary) hypertension; Z90.89 Acquired absence of other organs; Z90.710 Acquired absence of both cervix and uterus; Z88.0 Allergy status to penicillin; X50.9XXA Other and unspecified overexertion or strenuous movements or postures, initial encounter; Y93.89 Activity, other specified; Y92.89 Other specified places as the place of occurrence of the external cause; Y99.8 Other external cause status
CPT/HCPCS: 72131; 96372; 99284; J2270

== ENCOUNTER → 2020-07-05 | Outpatient (CLI) | payer BC ==
[~2020-07-05] MED LIST changes: +CYCL10TA2 PO; +HYDR-3164 PO; +MECL-75 PO; -MECL25TA3 PO; +METH4TAB2 PO
--- NOTE | 2020-07-05 11:37 | KCIC ---
Bilateral diagnostic digital mammograms with 3-D tomosynthesis: Reason for examination: Follow-up nodule. Comparison is made to previous studies dated back to 07/21/2014. Bilateral mammograms in CC and oblique projections were obtained with 2-D imaging and 3-D tomosynthesis imaging on a Siemens Inspiration unit and reviewed on the workstation. Interpretation was made with the benefit of CAD. The skin and nipples show no abnormalities. No abnormal axillary lymph nodes are seen. The breast parenchyma shows scattered fatty and fibroglandular density. (Breast density: Category B.) There continues to be a nodule consistent with a probable intramammary lymph node at the 10:00 position posteriorly in the right breast. There is also a subtle area of nodularity seen posterior at the 7:00 C position of the right breast which is unchanged. There appear to be small nodular parenchymal densities in the left breast. Ultrasound will follow. Impression: Small nodular densities in the left breast. Ultrasound to follow. No change in the right breast. BI-RAD Category 0: Incomplete. Needs additional imaging evaluation. Left breast ultrasound: Ultrasound examination of the left breast and axilla was performed. At the 12:00 position 5 cm from the nipple, there is a 4.3 mm hypoechoic fibrocystic lesion. At the 2:00 position 8 cm from the nipple, there is a 5.3 mm hypoechoic fibrocystic type lesion. At the 10:00 position 1.5 cm from the nipple, there is a 3.9 mm hypoechoic fibrocystic lesion. At the 10:00 position 2 cm from the nipple, there is a 3 mm hypoechoic fibrocystic type lesion. No suspicious-appearing nodules are seen. No abnormal appearing lymph nodes are seen in the axilla. IMPRESSION: Several small subcentimeter nodules in the left breast consistent with fibrocystic lesions. Recommend 6 month follow-up with ultrasound. BI-RADS Category 3: Probably Benign. "Our facility is accredited by the [employer] Mammography Program." This patient's information has been entered into a reminder system for the patient to be notified with the results of her examination and a target date for the next mammogram. Electronically signed by: Stefany Magdaleno MD (07/05/2020 11:34 AM) [id number]
== END ==
LOC: KCIC MAMMO 09:13
PROVIDERS: ATTEND Family Medicine
DX: R92.2 Inconclusive mammogram (principal); N63.11 Unspecified lump in the right breast, upper outer quadrant; N63.22 Unspecified lump in the left breast, upper inner quadrant
CPT/HCPCS: 76641; 77066; G0279; 77062

== ENCOUNTER 2020-10-29 07:11 | Emergency (ER) | payer BC, MEDICARE ==
[~2020-10-29] VITALS: Ht 152.4 cm; Wt 100.0 kg
[2020-10-29 07:34] LABS: BILIRUBIN,URINE NEGATIVE (NEG); CLARITY,URINE CLEAR; COLOR,URINE YELLOW; NITRITE,URINE NEGATIVE (NEG); PROTEIN,URINE 30 mg/dL (NEG-TRACE)
[2020-10-29] MEDS ORDERED: fentaNYL PF VIAL 100 MCG/2 ML VIAL IVP ONE (08:00)
[2020-10-29 08:15] LABS: BASO # 0.2 x10^3/uL (0.0-0.2); BASO % 2 % (0-3); EOS # 0.2 x10^3/uL (0.0-0.7); EOS % 2 % (0-3); HEMATOCRIT 33.7 % (36.0-47.0); HEMOGLOBIN 10.9 g/dL (12.0-15.5); LYMPH # 4.4 x10^3/uL (1.0-4.8); LYMPH % 37 % (24-48); MEAN CORPUSCULAR HEMOGLOBIN 27 pg (25-35); MEAN CORPUSCULAR HGB CONC 32 g/dL (31-37); MEAN CORPUSCULAR VOLUME 84 fL (79-100); MONO # 0.6 x10^3/uL (0.0-1.1); MONO % 5 % (0-9); NEUT # 6.5 x10^3/uL (1.8-7.7); NEUT % 55 % (31-73); PLATELET COUNT 313 x10^3/uL (140-400); RED CELL DISTRIBUTION WIDTH 15.1 % (11.5-14.5); WHITE BLOOD COUNT 11.9 x10^3/uL (4.0-11.0)
[2020-10-29 08:20] LABS: HYALINE CASTS, URINE MODERATE /HPF
[2020-10-29 08:21] LABS: BACTERIA,URINE MODERATE /HPF (0-FEW); RBC,URINE 0 /HPF (0-2); YEAST,URINE PRESENT /HPF
[2020-10-29 08:26] LABS: GFR 66.9; POTASSIUM 3.8 mmol/L (3.5-5.1)
[2020-10-29 08:31] LABS: ALBUMIN 3.1 g/dL (3.4-5.0); ALBUMIN/GLOBULIN RATIO 0.8 (1.0-1.7); TOTAL BILIRUBIN 0.3 mg/dL (0.2-1.0); TOTAL PROTEIN 7.2 g/dL (6.4-8.2)
--- NOTE | 2020-10-29 08:37 | ED.ADGEN ---
Past Medical History Past Medical History: Diabetes-Type II, High Cholesterol, Hypertension Past Surgical History: Hysterectomy Smoking Status: Never Smoker Alcohol Use: None Drug Use: None General Adult EDM: Chief Complaint: ABDOMINAL PAIN HPI: HPI: Patient is a 65 year old female coming in for right side abdominal pain strain 24 hours prior to arrival. Patient states she was sitting with her grandson when the pain started. States pain has been constant is worse with movement, describes the pain as sharp and cramping. Is mid right abdomen and nonradiating. Denies any vomiting. Has not had a bowel movement for the past 6 days, states she has been taking MiraLAX for the past 2 weeks. Denies any changes in urination. Denies any fevers, cough, chest pain, lower extremity edema, or other complaints. Has history of hysterectomy and appendectomy. Review of Systems: Review of Systems: All other systems within normal limits except for as noted in the HPI Current Medications: Current Medications Medications (Trade) Dose Ordered Sig/Yuri Start Time Stop Time Status Last Admin Dose Admin Fentanyl Citrate (Fentanyl 2ml Vial) 75 mcg 1X ONCE 10/29/20 08:00 10/29/20 08:01 DC 10/29/20 08:12 75 MCG Iohexol (Omnipaque 300 Mg/ml) 75 ml 1X ONCE 10/29/20 09:00 10/29/20 09:01 DC 10/29/20 09:06 75 ML Allergies: Allergies: Allergies Coded Allergies Type Severity Reaction Last Updated Verified penicillin V Allergy Intermediate hives 08/15/14 Yes Physical Exam: PE: Constitutional: Well developed, well nourished, no acute distress, non-toxic appearance. [] HENT: Normocephalic, atraumatic, bilateral external ears normal, nose normal. [] Eyes: PERRLA, conjunctiva normal, no discharge. [] Neck: No rigidity, supple, no stridor. [] Cardiovascular: Regular rate and rhythm, brisk cap refill [] Lungs & Thorax: Non labored symmetric respirations, no tachypnea or respiratory distress [] Abdomen: Soft, nondistended, no guarding rebound. Pain in mid lateral right abdomen. Skin: Warm, dry, no erythema, no rash. [] Back: Unremarkable Extremities: No deformities, range of motion grossly intact, no lower extremity edema [] Neurologic: Alert and oriented X 3, no focal deficits noted. [] Psychologic: Affect normal, judgement normal, mood normal. [] Current Patient Data: Labs: Laboratory Tests Test 10/29/20 07:20 10/29/20 08:03 Urine Collection Type Unknown Urine Color Yellow Urine Clarity Clear Urine pH 5.0 (<5.0-8.0) Urine Specific [place] 1.025 (1.000-1.030) Urine Protein 30 mg/dL (NEG-TRACE) Urine Glucose (UA) >=1000 mg/dL (NEG) Urine Ketones (Stick) Negative mg/dL (NEG) Urine Blood Negative (NEG) Urine Nitrite Negative (NEG) Urine Bilirubin Negative (NEG) Urine Urobilinogen Dipstick 1.0 mg/dL (0.2 mg/dL) Urine Leukocyte Esterase Trace (NEG) Urine RBC 0 /HPF (0-2) Urine WBC 5-10 /HPF (0-4) Urine Squamous Epithelial Cells Many /LPF Urine Bacteria Moderate /HPF (0-FEW) Urine Hyaline Casts Moderate /HPF Urine Mucus Mod /LPF Urine Yeast Present /HPF White Blood Count 11.9 x10^3/uL (4.0-11.0) H Red Blood Count 4.00 x10^6/uL (3.50-5.40) Hemoglobin 10.9 g/dL (12.0-15.5) L Hematocrit 33.7 % (36.0-47.0) L Mean Corpuscular Volume 84 fL (79-100) Mean Corpuscular Hemoglobin 27 pg (25-35) Mean Corpuscular Hemoglobin Concent 32 g/dL (31-37) Red Cell Distribution Width 15.1 % (11.5-14.5) H Platelet Count 313 x10^3/uL (140-400) Neutrophils (%) (Auto) 55 % (31-73) Lymphocytes (%) (Auto) 37 % (24-48) Monocytes (%) (Auto) 5 % (0-9) Eosinophils (%) (Auto) 2 % (0-3) Basophils (%) (Auto) 2 % (0-3) Neutrophils # (Auto) 6.5 x10^3/uL (1.8-7.7) Lymphocytes # (Auto) 4.4 x10^3/uL (1.0-4.8) Monocytes # (Auto) 0.6 x10^3/uL (0.0-1.1) Eosinophils # (Auto) 0.2 x10^3/uL (0.0-0.7) Basophils # (Auto) 0.2 x10^3/uL (0.0-0.2) Sodium Level 138 mmol/L (136-145) Potassium Level 3.8 mmol/L (3.5-5.1) Chloride Level 101 mmol/L (98-107) Carbon Dioxide Level 27 mmol/L (21-32) Anion Gap 10 (6-14) Blood Urea Nitrogen 21 mg/dL (7-20) H Creatinine 1.0 mg/dL (0.6-1.0) Estimated GFR (Cockcroft-Gault) 66.9 BUN/Creatinine Ratio 21 (6-20) H Glucose Level 288 mg/dL (70-99) H Lactic Acid Level 1.8 mmol/L (0.4-2.0) Calcium Level 9.0 mg/dL (8.5-10.1) Total Bilirubin 0.3 mg/dL (0.2-1.0) Aspartate Amino Transferase (AST) 15 U/L (15-37) Alanine Aminotransferase (ALT) 25 U/L (14-59) Alkaline Phosphatase 156 U/L (46-116) H Total Protein 7.2 g/dL (6.4-8.2) Albumin 3.1 g/dL (3.4-5.0) L Albumin/Globulin Ratio 0.8 (1.0-1.7) L Lipase 193 U/L (73-393) Laboratory Tests 10/29/20 08:03 Laboratory Tests 10/29/20 08:03 Vital Signs: Vital Signs Date Time Temp Pulse Resp B/P (MAP) Pulse Ox O2 Delivery O2 Flow Rate FiO2 10/29/20 08:49 76 18 144/65 (91) 95 Room Air 10/29/20 07:20 98.4 98.4 EKG: EKG: [] Heart Score: Risk Factors: Risk Factors: DM, Current or recent (<one month) smoker, HTN, HLP, family history of CAD, obesity. Risk Scores: Score 0 - 3: 2.5% MACE over next 6 weeks - Discharge Home Score 4 - 6: 20.3% MACE over next 6 weeks - Admit for Clinical Observation Score 7 - 10: 72.7% MACE over next 6 weeks - Early Invasive Strategies Radiology/Procedures: Radiology/Procedures: EXAMINATION: CT ABDOMEN+PELVIS W (CT ABDOMEN/PELVIS WITH IV CONTRAST) CLINICAL HISTORY: Right abdominal pain TECHNIQUE: CT of the abdomen and pelvis was performed using standard technique, scanning from just above the dome of the diaphragm to the symphysis pubis following administration of intravenous contrast. CT Dose Reduction Employed: One or more of the following individualized dose reduction techniques were utilized for this examination: 1. Automated exposure control 2. Adjustment of the mA and/or kV according to patient size 3. Use of iterative reconstruction technique. COMPARISON: CT L-spine 03/22/2019 FINDINGS: Mild bibasilar subsegmental atelectasis. Liver, gallbladder, pancreas, spleen, adrenal glands, and kidneys unremarkable. Minimally filled urinary bladder suboptimally evaluated. 3.[address], not present on comparison CT. No dilated bowel or definite wall thickening. Stool throughout the colon. Appendix not definitively visualized. No abdominal aortic or iliac artery aneurysm. No lymphadenopathy. Multilevel thoracic degenerative disc disease. IMPRESSION: No evidence of acute abdominopelvic abnormality. Incidentally noted 3.7 cm left adnexal cyst, recommend pelvic ultrasound in 6-12 months to ensure resolution. Nonvisualized appendix. [] Course & Med Decision Making: Course & Med Decision Making Pertinent Labs and Imaging studies reviewed. (See chart for details) No emergent or surgical origins of pain identified in work-up. Patient's pain improved. Discussed increasing fluid intake and discussed return precautions. [] [place] Disclaimer: Mera Disclaimer: This electronic medical record was generated, in whole or in part, using a voice recognition dictation system. Departure Departure Impression: Primary Impression: Abdominal pain Disposition: ADMITTED INPT THIS HOSP Condition: STABLE Referrals: VAN CALIXTO MD (PCP) Patient Instructions: Abdominal Pain CLEMENT KC MD Oct 29, 2020 08:37
[2020-10-29] MEDS ORDERED: IOHEXOL 300 MG/ML 100ML VIAL. IV ONE (09:00)
--- NOTE | 2020-10-29 09:26 | RAD ---
EXAMINATION: CT ABDOMEN+PELVIS W (CT ABDOMEN/PELVIS WITH IV CONTRAST) CLINICAL HISTORY: Right abdominal pain TECHNIQUE: CT of the abdomen and pelvis was performed using standard technique, scanning from just ab ove the dome of the diaphragm to the symphysis pubis following administration of intravenous contrast . CT Dose Reduction Employed: One or more of the following individualized dose reduction techniques wer e utilized for this examination: 1. Automated exposure control 2. Adjustment of the mA and/or kV ac cording to patient size 3. Use of iterative reconstruction technique. COMPARISON: CT L-spine 03/22/2019 FINDINGS: Mild bibasilar subsegmental atelectasis. Liver, gallbladder, pancreas, spleen, adrenal glands, and kidneys unremarkable. Minimally filled urinary bladder suboptimally evaluated. 3.7 cm left adnexal cyst, not present on [facility] [place] CT. No dilated bowel or definite wall thickening. Stool throughout the colon. Appendix not definitively v isualized. No abdominal aortic or iliac artery aneurysm. No lymphadenopathy. Multilevel thoracic degenerative disc disease. IMPRESSION: No evidence of acute abdominopelvic abnormality. Incidentally noted 3.7 cm left adnexal cyst, recommend pelvic ultrasound in 6-12 months to ensure res olution. Nonvisualized appendix. Electronically signed by: Aiden Harden DO (10/29/2020 9:24 AM) ERIN
[2020-10-29 10:01] VITALS: BP 117/58
== END 2020-10-29 10:06 | disposition home or self-care (01) ==
LOC: ER 07:11
DX: R10.31 Right lower quadrant pain (principal); M51.34 Other intervertebral disc degeneration, thoracic region; E11.9 Type 2 diabetes mellitus without complications; E78.00 Pure hypercholesterolemia, unspecified; I10 Essential (primary) hypertension; Z90.710 Acquired absence of both cervix and uterus; Z88.0 Allergy status to penicillin
CPT/HCPCS: 36415; 74177; 80053; 81001; 83605; 83690; 85025; 87086; 96374; 99284; J3010; Q9967; 99285-25

== ENCOUNTER → 2020-12-15 | Outpatient (CLI) | payer MEDICARE ==
--- NOTE | 2020-12-15 11:35 | KCIC ---
Left breast ultrasound: Reason for examination: Follow-up nodules. Comparison is made to previous study dated 07/05/2020. Left whole breast ultrasound including evaluation of all 4 quadrants and the retroareolar and axillar y regions of the left breast was performed. There continue to be several small hypoechoic nodules located at the 10:00 position 2 cm from the nip ple, 10:00 position 1.5 cm from the nipple, 12:00 position 5 cm from the nipple and 2:00 position 8 c m from the nipple. These lesions all appear to have shown a slight decrease in overall size. None of these lesions show interval progression. No abnormal appearing lymph nodes are seen in the axilla. IMPRESSION: Small subcentimeter nodules which all appear to show mild interval improvement. No grossly suspicious lesions are seen. Recommend however continued 6 month follow-up with ultrasound at the time of bilat eral mammograms to verify one year stability. BI-RADS Category 3: Probably Benign. "Our facility is accredited by the [employer] Mammography Program." This patient's information has been entered into a reminder system for the patient to be notified wit h the results of her examination and a target date for the next mammogram. Electronically signed by: Stefany Magdaleno MD (12/15/2020 11:32 AM) [email or web address]
== END ==
LOC: KCIC US 10:52
PROVIDERS: ATTEND Family Medicine
DX: N63.20 Unspecified lump in the left breast, unspecified quadrant (principal)
CPT/HCPCS: 76641

== ENCOUNTER → 2021-07-04 | Outpatient (CLI) | payer MEDICARE ==
[~2021-07-04] MED LIST changes: +CYCL10TA19 PO; -CYCL10TA2 PO
--- NOTE | 2021-07-04 11:06 | KCIC ---
EXAM: DUAL ENERGY X-RAY ABSORPTIOMETRY (DEXA). HISTORY: Postmenopausal screening. FINDINGS: The lowest measured T-score is 0.8 in the lumbar spine, based on a bone mineral density of 1.131 g/cm^2. Refer to the worksheets for full detail. No comparison examinations are available. IMPRESSION: 1. Normal. Bone mineral density yields a T-score of -1.0 or greater. Fracture risk is low. 2. FRAX report: Not calculated. METHODOLOGY: Dual energy x-ray absorptiometry was performed to measure bone mineral density. The foll owing analysis is based on the 2019 Official Positions of the International Society for Clinical Dens itometry: Measurements of the hips and the average of L1-L4 are preferred. When the spine and/or hip cannot be feasibly measured or interpreted, or in the setting of hyperparathyroidism, distal radial bone minera l density may be measured. The lumbar spine T-score is based on the average bone mineral density of L1-L4. In the setting of art ifact or anatomic abnormality, some lumbar levels may be excluded, and the remaining levels used for calculation. A single lumbar level is not used for diagnosis, and if only a single level is available for assessment, another anatomic site will be used to assign a diagnosis. The hip T-score is based on the bone mineral density measurement of the femoral neck or total proxima l femur of either side, whichever is lowest. Bilateral mean values are not used for diagnosis. The forearm T-score is derived from 33% of the distal radius of the nondominant forearm. Electronically signed by: Eleanor Burks MD (07/04/2021 11:03 AM) [id number]
--- NOTE | 2021-07-04 13:06 | KCIC ---
Bilateral diagnostic digital mammograms with 3-D tomosynthesis: Reason for examination: Follow-up nodules in the left breast. Routine screening of the right breast.. Comparison is made to previous studies dated back to 09/13/2016. Bilateral mammograms in CC and oblique projections were obtained with 2-D imaging and 3-D tomosynthes is imaging on a Siemens Inspiration unit and reviewed on the workstation. Interpretation was made wit h the benefit of CAD. The skin and nipples show no abnormalities. No abnormal axillary lymph nodes are seen. The breast par enchyma shows scattered fatty and fibroglandular density. (Breast density: Category B.) There continu ed be small nodular densities in the right breast which are stable. There also continue to be small n odular densities in the left breast which appear to be stable. There are calcifications in the lower inner quadrant of the right breast which are stable. IMPRESSION: Stable nodules seen bilaterally. Stable calcifications seen in the right breast. Ultrasound to follow. BI-RADS Category 0: Incomplete. Needs additional imaging evaluation. Left breast ultrasound: Comparison is made to previous studies dated 07/05/2020 and 12/15/2020. At the 10:00 position 2 cm from the nipple, there continues to be a small 3.6 mm benign-appearing hyp oechoic fibrocystic lesion. At the 10:00 position 1.5 cm from the nipple, there continues to be a 5.5 mm hypoechoic fibrocystic type lesion. At the 12:00 position 5 cm from the nipple, there continues t o be a small 3.4 mm hypoechoic fibrocystic lesion. At the 2 position 8 cm from the nipple there neo nues to be a 4.6 mm hypoechoic circumscribed lesion which may represent a small fibroadenoma but is s table. There is some ductal ectasia in the retroareolar position. No abnormal appearing lymph nodes a re seen in the axilla. IMPRESSION: Benign-appearing fibrocystic and fibroadenomatous type nodules which are stable. No suspicious abnorm alities are seen. Recommend routine mammographic follow-up. BI-RADS Category 2: Benign. "Our facility is accredited by the [employer] Mammography Program." This patient's information has been entered into a reminder system for the patient to be notified wit h the results of her examination and a target date for the next mammogram. Electronically signed by: Stefany Magdaleno MD (07/04/2021 1:03 PM) [id number]
== END ==
LOC: KCIC DEXA 09:31
PROVIDERS: ATTEND Family Medicine
DX: Z09 Encounter for follow-up examination after completed treatment for conditions other than malignant neoplasm (principal); R92.1 Mammographic calcification found on diagnostic imaging of breast; R92.8 Other abnormal and inconclusive findings on diagnostic imaging of breast; N63.20 Unspecified lump in the left breast, unspecified quadrant; N63.10 Unspecified lump in the right breast, unspecified quadrant
CPT/HCPCS: 76641; 77066; 77080; G0279; 77062

== ENCOUNTER 2021-07-24 04:21 | Emergency (ER) | payer MEDICARE ==
[~2021-07-24] VITALS: Ht 152.4 cm; Wt 86.0 kg
--- NOTE | 2021-07-24 04:57 | PHYS DOC ---
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 States it started approximately 4 days ago and has gradually worsened and is now very severe. Took tizanidine, and it did not help so she is not taking it anymore. Is now taking Tylenol and ibuprofen. Also takes a daily aspirin 81 mg. No alleviating factors. The headache starts behind her right ear and radiates towards her right hinduism. No recent head or neck trauma. No speech difficulty, numbness, tingling, coordination difficulty, or vision changes. She chronically has a hearing problem out of her right ear, and states that her "inner ear tumor" was diagnosed approximately a month ago. She is unsure of the specific diagnosis. Denies fever, chills, or neck pain. Denies any worsening pain with head movements/neck movement. Denies immunosuppressive medications. (DILLON BOGGS MD) Review of Systems: Review of Systems: Constitutional: Denies fever or chills. [] Eyes: Denies change in visual acuity. [] HENT: Denies nasal congestion or sore throat. [] Respiratory: Denies cough or shortness of breath. [] Cardiovascular: Denies chest pain or edema. [] GI: Denies abdominal pain, nausea, vomiting, bloody stools or diarrhea. [] : Denies dysuria. [] Musculoskeletal: Denies back pain or joint pain. [] Integument: Denies rash. [] Neurologic: Reports severe headache denies focal weakness or sensory changes. [] Endocrine: Denies polyuria or polydipsia. [] Lymphatic: Denies swollen glands. [] Psychiatric: Denies depression or anxiety. [] (DILLON BOGGS MD) Heart Score: C/O Chest Pain: No Risk Factors: Risk Factors: DM, Current or recent (<one month) smoker, HTN, HLP, family history of CAD, obesity. Risk Scores: Score 0 - 3: 2.5% MACE over next 6 weeks - Discharge Home Score 4 - 6: 20.3% MACE over next 6 weeks - Admit for Clinical Observation Score 7 - 10: 72.7% MACE over next 6 weeks - Early Invasive Strategies (DILLON BOGGS MD) Allergies: Allergies: Allergies Coded Allergies Type Severity Reaction Last Updated Verified penicillin V Allergy Intermediate hives 08/15/14 Yes (DILLON BOGGS MD) Physical Exam: PE: Constitutional: In obvious distress, occasionally grabbing her head, eyes c losed. HENT: Normocephalic, atraumatic Eyes: PERRLA, EOMI, conjunctiva normal, no discharge. [] Neck: Normal range of motion, no tenderness, supple, no stridor. [] Cardiovascular:Heart rate regular rhythm, no murmur [] Lungs & Thorax: Normal work of Abdomen: Bowel sounds normal, soft, no tenderness, no masses, no pulsatile masses. [] Skin: Warm, dry, no erythema, no rash. [] Back: No tenderness, no CVA tenderness. [] Extremities: No tenderness, no cyanosis, no clubbing, ROM intact, no edema. [] Neurologic: Alert, oriented to person, place, time. Pupils equal, reactive to light. EOMI. visual salcedo intact. Face is symmetric. Speech is normal. Cranial nerves III-XII intact. 5/5 strength in bilateral upper and lower extremities in all dermatomes. No dysmetria with [id number] or [id number]-[id number] testing. Gait is stable. Psychologic: Affect normal, judgement normal, mood normal. [] (DILLON BOGGS MD) EKG: EKG: [] (DILLON BOGGS MD) Radiology/Procedures: Radiology/Procedures: [] (DILLON BOGGS MD) Radiology/Procedures: IMAGING REPORT Signed PATIENT: JESSICA GODINEZ ACCOUNT: [id number] : 1955 LOCATION: ER AGE: 65 SEX: F EXAM STATUS: REG ER ORD. PHYSICIAN: DILLON BOGGS MD REASON: severe right sided headache, hx of "internal ear tumor" PROCEDURE: CT HEAD WO CONTRAST CT Head W/O Contrast: History: Reason: severe right sided headache, hx of "internal ear tumor" / Spl. Instructions: / History: Comparison: November 09, 2018 Axial images were obtained without contrast. The mcmahon and white matter appears normal and symmetrical for the patients age. There is no mass effect, extraaxial fluid collections or hydrocephalus. There is no gross bleed. There is no focal loss of mcmahon-white matter distinction to suggest acute ischemia, i.e. stroke. Impression: No acute findings. PQRS Compliance Statement: One or more of the following individualized dose reduction techniques were utilized for this examination: 1. Automated exposure control 2. Adjustment of the mA and/or kV according to patient size 3. Use of iterative reconstruction technique Electronically signed by: Kelley Finley III, MD (07/24/2021 6:41 AM) [facility] DICTATED and SIGNED BY: KELLEY FINLEY III, MD DATE: 07/24/21 [id number] IMAGING REPORT Signed PATIENT: JESSICA GODINEZ ACCOUNT: [id number] : 1955 LOCATION: ER AGE: 65 SEX: F EXAM STATUS: REG ER ORD. PHYSICIAN: DILLON BOGGS MD REASON: severe right sided headache, hx of "internal ear tumor" PROCEDURE: CT ANGIOGRAPHY HEAD AND NECK CTA head and CTA neck with contrast History: Right-sided headache and history of "inner ear tumor" Technique: Axial helical images were obtained of the head and neck after the intravenous administration of 75 mL of Isovue-370 IV contrast. Multiplanar reconstruction was performed on an independent work station including MIP imaging and 3D angiographic imaging. Comparison: none CTA head with and without contrast. Findings: Brain: The mcmahon and white matter appears symmetrical. There is no mass effect, extra-axial fluid collections or hydrocephalus. There is no gross bleed. Distal carotid arteries: normal caliber Vertebral basilar system normal Major cerebral arteries: normal Impression: no acute findings end impression CTA neck with contrast: Findings: Aortic arch and origin of great vessels: normal Common carotid arteries: Right: normal Left: normal Internal carotid arteries: Right: normal Left: normal Vertebral basilar system normal Impression: No significant stenosis. PQRS Compliance Statement - Stenosis calculations for CT, MR and conventional angiography are based upon measurement of the distal ICA diameter in accordance with the NASCET methodology. Stenosis calculations for carotid ultrasound studies are derived from validated velocity criteria which are known to co rrelate with the NASCET methodology. RS Compliance Statement: One or more of the following individualized dose reduction techniques were utilized for this examination: 1. Automated exposure control 2. Adjustment of the mA and/or kV according to patient size 3. Use of iterative reconstruction technique Electronically signed by: Kelley Finley III, MD (07/24/2021 6:46 AM) [facility] DICTATED and SIGNED BY: KELLEY FINLEY III, MD DATE: 07/24/21 [id number] ([facility]) Course & Med Decision Making: Course & Med Decision Making Pertinent Labs and Imaging studies reviewed. (See chart for details) Patient is 65-year-old female with history of a "inner ear tumor" on the right who presents with severe headache that is been worsening over the past 4 days. Neurologic examination intact as above. Does have pain behind her right ear radiating to her hinduism. Concern for complication from stated tumor, temporal arteritis, ICH, cervical artery dissection. Will obtain CT/CTA head and neck, ESR, CRP, basic labs. No fever/chills, nuchal rigidity to suggest meningitis. 0504 Work-up is largely still pending, signed out to oncoming physician at shift change at 0600. (DILLON BOGGS MD) Course & Med Decision Making On reevaluation patient states pain has resolved (holds a thumbs up). Patient describes her headache as a pressure-like sensation behind her right ear that radiated to her hinduism. Reports this is not the worst headache of her life. Is on any anticoagulants. Is no associated dizziness, blurry vision, photophobia, or phonophobia. Will discharge home with strict ED return precautions were given for severe headache, neurologic deficits, ataxia or head injury. Encouraged urgent outpatient follow-up with PMD and neurology as needed for management of headaches. Life-threatening processes were considered but are low suspicion at this time, given history, physical exam and ED workup. Pt was educated on all prescription medications and adverse effects. All patient's questions were answered and pt was stable at time of discharge. Life/limb-threatening differential includes but is not limited to, meningitis, encephalitis, intracranial hemorrhage, obstructive hydrocephaly, CVA, carbon monoxide poisoning, cerebral or cavernous venous thrombosis, hypertensive emergency, preeclampsia, giant cell arteritis, glaucoma, carotid or vertebral artery dissection, superior vena cava syndrome, infection, optic neuritis, or space-occupying lesions. I have spoken with the patient and/or caregivers. I explained the patient's condition, diagnoses and treatment plan based on the information available to me at this time. I have answered the patient and/or caregiver's questions and addressed any concerns. The patient and/or caregivers have a good understanding of patient's diagnosis, condition and treatment plan as can be expected at this point. Vital signs have been stable. Patient's condition is stable and appropriate for discharge from the emergency department. Patient will pursue further outpatient evaluation with primary care physician or other designated or consulting physician as outlined in the discharge instructions. The patient and/or caregivers are agreeable to this plan of care and follow-up instructions have been explained in detail. The patient and/or caregivers have received these instructions in written form and have expressed an understanding of the discharge instructions. The patient and/or caregivers are aware that any significant change of condition or worsening of symptoms should prompt immediate return to this or the closest emergency department or call to 911. ([facility]) Dragon Disclaimer: Dragon Disclaimer: This electronic medical record was generated, in whole or in part, using a voice recognition dictation system. (DILLON BOGGS MD) Departure Departure Impression: Primary Impression: Headache Disposition: 01 HOME / SELF CARE / HOMELESS Condition: STABLE Referrals: VAN CALIXTO MD (PCP) Follow-up with your primary care physician in 24 to 48 hours OR FOLLOW UP WITH FAMILY MEDICINE: [address] [facility], [facility] [address] [place] [address] Patient Instructions: General Headache Without Cause Additional Instructions: FOLLOW UP WITH NEUROLOGY: FOR DEFINITIVE MANAGEMENT of headaches [facility] [address] [facility] [place] [address] EMERGENCY DEPARTMENT GENERAL DISCHARGE INSTRUCTIONS Thank you for coming to [facility] Emergency Department (ED) today and trusting us with you care. We trust that you had a positive experience in our Emergency Department. If you wish to speak to the department management, you may call the Director at [phone]. YOUR FOLLOW UP INSTRUCTIONS ARE FOLLOWS: 1. Do you have a private Doctor? If you do not have a private doctor, please ask for a resource list of physicians or clinics that may be able to assist you with follow up care. 2. The Emergency Physicain has interpreted your x-rays. The X-Ray specialist will also review them. If there is a change in the findings, you will be notified in 48 hours when at all possible. 3. A lab test or culture has been done, your results will be reviewed and you will be notified if you need a change in treatment. ADDITIONAL INSTRUCTIONS AND INFORMATION: 1. Your care today has been supervised by a physician who is specially trained in emergency care. Many problems require more than one evaluation for a complete diagnosis and treatment. We recommend that you schedule your follow up appointment as recommended to ensure complete treatment of you illness or injury. If you are unable to obtain follow up care and continue to have a problem, or if your condition worsens, we recommend that you return to the ED. 2. We are not able to safely determine your condition over the phone nor are we able to give sound medical advice over the phone. For these safety reasons, if you call for medical advice we will ask you to come to the ED for further evaluation. 3. If you have any questions regarding these discharge instructions please call the ED at [phone]. SAFETY INFORMATION: In the interest of safety, wellness, and injury prevention; we encourage you to wear your sealbelt, if you smoke; quite smoking, and we encourage family to use a protective helmet for bicycling and other sporting events that present an increased risk for head injury. IF YOUR SYMPTOMS WORSEN OR NEW SYMPTOMS DEVELOP, OR YOU HAVE CONCERNS ABOUT YOUR CONDITION; OR IF YOUR CONDITION WORSENS WHILE YOU ARE WAITING FOR YOUR FOLLOW UP APPOINTMENT; EITHER CONTACT YOUR PRIMARY CARE DOCTOR, THE PHYSICIAN WHOSE NAME AND NUMBER YOU WERE GIVEN, OR RETURN TO THE ED IMMEDIATELY. DILLON BOGGS MD Jul 24, 2021 04:57 MANJU ROCHA DO Jul 24, 2021 07:02
[2021-07-24] MEDS ORDERED: diphenhydrAMINE 50 MG/ML VIAL IVP ONE (05:00)
[2021-07-24] MEDS ORDERED: PROCHLORPERAZINE 10 MG/2 ML VIAL. IV ONE (05:00)
[2021-07-24 05:43] LABS: BASO # 0.1 x10^3/uL (0.0-0.2); BASO % 1 % (0-3); EOS # 0.2 x10^3/uL (0.0-0.7); EOS % 2 % (0-3); HEMATOCRIT 34.8 % (36.0-47.0); LYMPH % 37 % (24-48); MEAN CORPUSCULAR HEMOGLOBIN 27 pg (25-35); MEAN CORPUSCULAR HGB CONC 32 g/dL (31-37); MEAN CORPUSCULAR VOLUME 85 fL (79-100); MONO # 0.6 x10^3/uL (0.0-1.1); MONO % 5 % (0-9); NEUT # 7.5 x10^3/uL (1.8-7.7); NEUT % 56 % (31-73); PLATELET COUNT 382 x10^3/uL (140-400); RED BLOOD COUNT 4.09 x10^6/uL (3.50-5.40); RED CELL DISTRIBUTION WIDTH 15.8 % (11.5-14.5); WHITE BLOOD COUNT 13.4 x10^3/uL (4.0-11.0)
[2021-07-24 05:58] LABS: CALCIUM 9.3 mg/dL (8.5-10.1); CREATININE 1.1 mg/dL (0.6-1.0); GFR 59.9
[2021-07-24 06:01] LABS: C-REACTIVE PROTEIN 23.6 mg/L (0-3.3)
--- NOTE | 2021-07-24 06:43 | RAD ---
CT Head W/O Contrast: History: Reason: severe right sided headache, hx of "internal ear tumor" / Spl. Instructions: / Hist ory: Comparison: November 09, 2018 Axial images were obtained without contrast. The mcmahon and white matter appears normal and symmetrical for the patients age. There is no mass effe ct, extraaxial fluid collections or hydrocephalus. There is no gross bleed. There is no focal loss of mcmahon-white matter distinction to suggest acute ischemia, i.e. stroke. Impression: No acute findings. RS Compliance Statement: One or more of the following individualized dose reduction techniques were utilized for this examinat ion: 1. Automated exposure control 2. Adjustment of the mA and/or kV according to patient size 3. Use of iterative reconstruction technique Electronically signed by: Jose Ramos III, MD (07/24/2021 6:41 AM) [facility]
[2021-07-24] MEDS ORDERED: CONTRAST GIVEN. MC PRN (06:45)
[2021-07-24] MEDS ORDERED: IOHEXOL 300 MG/ML 100ML VIAL. IV ONE (06:45)
--- NOTE | 2021-07-24 06:48 | RAD ---
CTA head and CTA neck with contrast History: Right-sided headache and history of "inner ear tumor" Technique: Axial helical images were obtained of the head and neck after the intravenous administrati on of 75 mL of Isovue-370 IV contrast. Multiplanar reconstruction was performed on an independent wo rk station including MIP imaging and 3D angiographic imaging. Comparison: none CTA head with and without contrast. Findings: Brain: The mcmahon and white matter appears symmetrical. There is no mass effect, extra-axial fluid co llections or hydrocephalus. There is no gross bleed. Distal carotid arteries: normal caliber Vertebral basilar system normal Major cerebral arteries: normal Impression: no acute findings end impression CTA neck with contrast: Findings: Aortic arch and origin of great vessels: normal Common carotid arteries: Right: normal Left: normal Internal carotid arteries: Right: normal Left: normal Vertebral basilar system normal Impression: No significant stenosis. PQRS Compliance Statement - Stenosis calculations for CT, MR and conventional angiography are based u rodolfo measurement of the distal ICA diameter in accordance with the NASCET methodology. Stenosis calcu lations for carotid ultrasound studies are derived from validated velocity criteria which are known t o correlate with the NASCET methodology. PQRS Compliance Statement: One or more of the following individualized dose reduction techniques were utilized for this examinat ion: 1. Automated exposure control 2. Adjustment of the mA and/or kV according to patient size 3. Use of iterative reconstruction technique Electronically signed by: Jose Ramos III, MD (07/24/2021 6:46 AM) [facility]
[2021-07-24] MEDS ORDERED: IV NORMAL SALINE 1000ML BAG 1,000 ML IV ONE (09:00)
[2021-07-24] MEDS ORDERED: DEXAMETHASONE SOD PHOS 20 MG/5 ML VIAL. IV ONE (09:00)
[2021-07-24] MEDS ORDERED: KETOROLAC 15 MG/ML VIAL. IVP ONE (09:00)
[2021-07-24 11:02] VITALS: BP 131/57
== END 2021-07-24 11:15 | disposition home or self-care (01) ==
LOC: ER 04:21
DX: R51.9 Headache, unspecified (principal); M54.2 Cervicalgia; E11.9 Type 2 diabetes mellitus without complications; E78.00 Pure hypercholesterolemia, unspecified; I10 Essential (primary) hypertension; Z88.0 Allergy status to penicillin
CPT/HCPCS: 36415; 70450; 70496; 70498; 80048; 85025; 85651; 86140; 96361; 96374; 96375; 99284; J0780; J1100; J1200; J1885; J7030; Q9967; 99285-25